=== PATIENT | female | born 1960 | race Caucasian/White ===

== ENCOUNTER 2018-04-11 17:58 | Inpatient (IN) | payer OTHER ==
[2018-04-11] MEDS: ATENOLOL 50 MG TAB PO (18:53)
[2018-04-11] MEDS ORDERED: FUROSEMIDE 20 MG TAB PO (19:00)
[2018-04-11 19:15] LABS: MEAN CORPUSCULAR HEMOGLOBIN 26.4 pg (27.0-33.0); MEAN CORPUSCULAR HGB CONC 32.5 g/dl (32.0-36.5); MEAN CORPUSCULAR VOLUME 81.3 fl (80.0-96.0); PLATELET COUNT, AUTOMATED 372 10^3/uL (150-450); RED BLOOD COUNT 4.92 10^6/uL (4.00-5.40); RED CELL DISTRIBUTION WIDTH 17.4 % (11.5-14.5); WHITE BLOOD COUNT 7.3 10^3/uL (4.0-10.0)
[2018-04-11 19:58] LABS: ACETAMINOPHEN LEVEL 4.7 UG/ML (10.0-30.0); ALBUMIN 3.6 GM/DL (3.2-5.2); ALBUMIN/GLOBULIN RATIO 0.92 (1.00-1.93); ALKALINE PHOSPHATASE 146 U/L (45-117); ALT/SGPT 40 U/L (12-78); ANION GAP 14 MEQ/L (8-16); AST/SGOT 19 U/L (7-37); BILIRUBIN,DIRECT 0.1 MG/DL (0.0-0.2); BILIRUBIN,TOTAL 0.4 MG/DL (0.2-1.0); BLOOD UREA NITROGEN 15 MG/DL (7-18); CALCIUM LEVEL 10.9 MG/DL (8.5-10.1); CARBON DIOXIDE LEVEL 22 MEQ/L (21-32); CHLORIDE LEVEL 101 MEQ/L (98-107); CREATININE FOR GFR 1.32 MG/DL (0.55-1.30); GLOMERULAR FILTRATION RATE 44.2 (>51); GLUCOSE, FASTING 337 MG/DL (70-100); POTASSIUM SERUM 4.1 MEQ/L (3.5-5.1); SODIUM LEVEL 137 MEQ/L (136-145); TOTAL PROTEIN 7.5 GM/DL (6.4-8.2)
[2018-04-11 20:03] LABS: AMPHETAMINES LEVEL URINE NEGATIVE (NEGATIVE); BARBITURATES URINE NEGATIVE (NEGATIVE); BENZODIAZEPINES URINE NEGATIVE (NEGATIVE); CANNABINOIDS URINE NEGATIVE (NEGATIVE); COCAINE METABOLITE URINE NEGATIVE (NEGATIVE); METHADONE URINE NEGATIVE (NEGATIVE); OPIATES URINE NEGATIVE (NEGATIVE); PHENCYCLIDINE URINE NEGATIVE (NEGATIVE)
[2018-04-11 20:14] LABS: ETHYL ALCOHOL (ETHANOL) < 0.003 % (0.000-0.010)
[2018-04-11] MEDS: HumaLOG INSULIN (NovoLOG) PER UNIT SC (21:35)
[2018-04-11] MEDS: metFORMIN (GLUCOPHAGE) 500 MG TAB PO (21:35)
[2018-04-11] MEDS: LEVOTHYROXINE 112MCG TABLET (0.112MG) PO (21:35)
[2018-04-11 22:55] LABS: BEDSIDE GLUCOSE 210 MG/DL (70-105)
[2018-04-11] MEDS ORDERED: traZODone 50 MG TAB PO (23:15)
[2018-04-11] MEDS ORDERED: MAALOX 30 ML SUSP *UDC PO (23:15)
[2018-04-11] MEDS ORDERED: MOM 30ML SUSPENSION UDC PO (23:15)
[2018-04-11] MEDS ORDERED: LORazepam 0.5 MG TAB PO (23:15)
[2018-04-12] MEDS: LEVOTHYROXINE 112MCG TABLET (0.112MG) PO (06:08)
[2018-04-12] MEDS ORDERED: metFORMIN (GLUCOPHAGE) 500 MG TAB PO (08:00)
[2018-04-12] MEDS ORDERED: LEVEMIR (INSULIN DETEMIR) 1 UNITS/0.01ML SC (09:00)
[2018-04-12] MEDS: ATORVASTATIN 20 MG TAB PO ×2 (09:00→20:47)
[2018-04-12] MEDS: ATENOLOL 50 MG TAB PO (09:42)
[2018-04-12] MEDS: ENALAPRIL MALEATE 5 MG TAB PO (09:42)
[2018-04-12] MEDS: ASPIRIN 81 MG CHEW TABLET PO (09:43)
[2018-04-12] MEDS: OMEPRAZOLE 20 MG CAP PO (09:43)
[2018-04-12] MEDS: FUROSEMIDE 20 MG TAB PO (09:44)
[2018-04-12] MEDS ORDERED: DEXTROSE 50% 50 ML SYRINGE IV (09:45)
[2018-04-12] MEDS ORDERED: GLUCOSE 4 GM CHEW TABLET PO (09:45)
[2018-04-12] MEDS ORDERED: GLUCAGON FOR INJ 1 MG VIAL (J1610) SC (09:45)
[2018-04-12] MEDS ORDERED: CEPACOL LOZENGE PO (10:45)
[2018-04-12 11:12] LABS: ESTIMATED AVERAGE GLUCOSE 229 MG/DL (60-110); HEMOGLOBIN A1c 9.6 %
[2018-04-12 11:37] LABS: ALBUMIN 3.5 GM/DL (3.2-5.2); ALBUMIN/GLOBULIN RATIO 0.97 (1.00-1.93); ALKALINE PHOSPHATASE 133 U/L (45-117); ALT/SGPT 35 U/L (12-78); ANION GAP 12 MEQ/L (8-16); AST/SGOT 19 U/L (7-37); BILIRUBIN,TOTAL 0.5 MG/DL (0.2-1.0); BLOOD UREA NITROGEN 12 MG/DL (7-18); CALCIUM LEVEL 10.1 MG/DL (8.5-10.1); CARBON DIOXIDE LEVEL 26 MEQ/L (21-32); CHLORIDE LEVEL 99 MEQ/L (98-107); CREATININE FOR GFR 1.41 MG/DL (0.55-1.30); GLOMERULAR FILTRATION RATE 40.9 (>51); GLUCOSE, FASTING 300 MG/DL (70-100); POTASSIUM SERUM 4.2 MEQ/L (3.5-5.1); SODIUM LEVEL 137 MEQ/L (136-145); TOTAL PROTEIN 7.1 GM/DL (6.4-8.2)
[2018-04-12] MEDS: HumaLOG INSULIN (NovoLOG) PER UNIT SC ×4 (12:00→21:00)
[2018-04-12 12:26] LABS: BEDSIDE GLUCOSE 291 MG/DL (70-105)
[2018-04-12 12:44] LABS: MAGNESIUM LEVEL 1.4 MG/DL (1.8-2.4)
[2018-04-12 12:54] LABS: HEMATOCRIT 41.2 % (36.0-47.0); HEMOGLOBIN 13.2 g/dl (12.0-15.5); MEAN CORPUSCULAR HEMOGLOBIN 26.3 pg (27.0-33.0); MEAN CORPUSCULAR VOLUME 82.1 fl (80.0-96.0); PLATELET COUNT, AUTOMATED 407 10^3/uL (150-450); RED BLOOD COUNT 5.02 10^6/uL (4.00-5.40); RED CELL DISTRIBUTION WIDTH 17.2 % (11.5-14.5); WHITE BLOOD COUNT 7.9 10^3/uL (4.0-10.0)
[2018-04-12] MEDS: MAGNESIUM OXIDE 400 MG TAB (MAG-OX) PO (16:27)
[2018-04-12 17:16] LABS: BEDSIDE GLUCOSE 197 MG/DL (70-105)
[2018-04-12] MEDS: metFORMIN (GLUCOPHAGE) 500 MG TAB PO (17:18)
[2018-04-12] MEDS ORDERED: HumaLOG INSULIN (NovoLOG) PER UNIT SC (17:30)
[2018-04-12 20:44] LABS: BEDSIDE GLUCOSE 180 MG/DL (70-105)
[2018-04-12] MEDS: MIRTAZAPINE 15 MG TAB PO (20:47)
[2018-04-12] MEDS: LEVEMIR (INSULIN DETEMIR) 1 UNITS/0.01ML SC (20:50)
[2018-04-13 06:02] LABS: BEDSIDE GLUCOSE 293 MG/DL (70-105)
[2018-04-13] MEDS: LEVOTHYROXINE 112MCG TABLET (0.112MG) PO (06:07)
[2018-04-13] MEDS: HumaLOG INSULIN (NovoLOG) PER UNIT SC ×4 (06:38→21:22)
[2018-04-13 08:34] LABS: ANION GAP 14 MEQ/L (8-16); BLOOD UREA NITROGEN 19 MG/DL (7-18); CALCIUM LEVEL 9.3 MG/DL (8.5-10.1); CARBON DIOXIDE LEVEL 15 MEQ/L (21-32); CHLORIDE LEVEL 104 MEQ/L (98-107); CREATININE FOR GFR 1.19 MG/DL (0.55-1.30); FREE THYROXINE INDEX 1.5 % (1.3-4.8); GLOMERULAR FILTRATION RATE 49.8 (>51); GLUCOSE, FASTING 308 MG/DL (70-100); MAGNESIUM LEVEL 1.3 MG/DL (1.8-2.4); SODIUM LEVEL 133 MEQ/L (136-145); T UPTAKE 31 % (30-39); THYROXINE (T4) 4.9 UG/DL (4.5-12.0)
[2018-04-13] MEDS: MAGNESIUM OXIDE 400 MG TAB (MAG-OX) PO (08:45)
[2018-04-13] MEDS: OMEPRAZOLE 20 MG CAP PO (08:45)
[2018-04-13] MEDS: ASPIRIN 81 MG CHEW TABLET PO (08:48)
[2018-04-13] MEDS: metFORMIN (GLUCOPHAGE) 500 MG TAB PO ×2 (08:48→17:41)
[2018-04-13] MEDS: FUROSEMIDE 20 MG TAB PO (08:49)
[2018-04-13] MEDS: ATENOLOL 50 MG TAB PO (08:51)
[2018-04-13] MEDS: LEVEMIR (INSULIN DETEMIR) 1 UNITS/0.01ML SC ×2 (08:55→21:21)
[2018-04-13 12:12] LABS: BEDSIDE GLUCOSE 278 MG/DL (70-105)
[2018-04-13 17:14] LABS: BEDSIDE GLUCOSE 288 MG/DL (70-105)
[2018-04-13] MEDS: ATORVASTATIN 20 MG TAB PO (21:15)
[2018-04-13] MEDS: MIRTAZAPINE 7.5MG PER 1/2 TABLET PO (21:15)
[2018-04-13 21:17] LABS: BEDSIDE GLUCOSE 273 MG/DL (70-105)
[2018-04-14 06:27] LABS: BEDSIDE GLUCOSE 218 MG/DL (70-105)
[2018-04-14] MEDS: LEVOTHYROXINE 112MCG TABLET (0.112MG) PO (06:29)
[2018-04-14] MEDS: HumaLOG INSULIN (NovoLOG) PER UNIT SC ×4 (07:09→21:01)
[2018-04-14 08:30] LABS: ALBUMIN 3.2 GM/DL (3.2-5.2); ALBUMIN/GLOBULIN RATIO 0.86 (1.00-1.93); ALKALINE PHOSPHATASE 123 U/L (45-117); ALT/SGPT 30 U/L (12-78); ANION GAP 8 MEQ/L (8-16); AST/SGOT 21 U/L (7-37); BILIRUBIN,TOTAL 0.4 MG/DL (0.2-1.0); BLOOD UREA NITROGEN 19 MG/DL (7-18); CALCIUM LEVEL 9.2 MG/DL (8.5-10.1); CARBON DIOXIDE LEVEL 29 MEQ/L (21-32); CHLORIDE LEVEL 104 MEQ/L (98-107); CREATININE FOR GFR 1.01 MG/DL (0.55-1.30); GLOMERULAR FILTRATION RATE > 60.0 (>51); GLUCOSE, FASTING 198 MG/DL (70-100); MAGNESIUM LEVEL 1.4 MG/DL (1.8-2.4); POTASSIUM SERUM 4.1 MEQ/L (3.5-5.1); SODIUM LEVEL 141 MEQ/L (136-145); TOTAL PROTEIN 6.9 GM/DL (6.4-8.2)
[2018-04-14] MEDS: ASPIRIN 81 MG CHEW TABLET PO (08:43)
[2018-04-14] MEDS: FUROSEMIDE 20 MG TAB PO (08:43)
[2018-04-14] MEDS: OMEPRAZOLE 20 MG CAP PO (08:43)
[2018-04-14] MEDS: MAGNESIUM OXIDE 400 MG TAB (MAG-OX) PO ×2 (08:43→21:03)
[2018-04-14] MEDS: metFORMIN (GLUCOPHAGE) 500 MG TAB PO ×2 (08:44→17:21)
[2018-04-14] MEDS: ATENOLOL 50 MG TAB PO (08:44)
[2018-04-14] MEDS: LEVEMIR (INSULIN DETEMIR) 1 UNITS/0.01ML SC ×2 (08:47→21:02)
[2018-04-14 11:58] LABS: BEDSIDE GLUCOSE 254 MG/DL (70-105)
[2018-04-14 17:20] LABS: BEDSIDE GLUCOSE 236 MG/DL (70-105)
[2018-04-14] MEDS: ATORVASTATIN 20 MG TAB PO (21:02)
[2018-04-14] MEDS: MIRTAZAPINE 7.5MG PER 1/2 TABLET PO (21:02)
[2018-04-14 21:07] LABS: BEDSIDE GLUCOSE 261 MG/DL (70-105)
[2018-04-15] MEDS: LEVOTHYROXINE 112MCG TABLET (0.112MG) PO (06:34)
[2018-04-15] MEDS: HumaLOG INSULIN (NovoLOG) PER UNIT SC ×2 (06:53→11:53)
[2018-04-15 08:51] LABS: ALBUMIN 3.1 GM/DL (3.2-5.2); ALBUMIN/GLOBULIN RATIO 0.89 (1.00-1.93); ALKALINE PHOSPHATASE 126 U/L (45-117); ALT/SGPT 32 U/L (12-78); ANION GAP 8 MEQ/L (8-16); AST/SGOT 25 U/L (7-37); BILIRUBIN,TOTAL 0.4 MG/DL (0.2-1.0); BLOOD UREA NITROGEN 18 MG/DL (7-18); CALCIUM LEVEL 8.9 MG/DL (8.5-10.1); CARBON DIOXIDE LEVEL 30 MEQ/L (21-32); CHLORIDE LEVEL 104 MEQ/L (98-107); CREATININE FOR GFR 0.92 MG/DL (0.55-1.30); GLOMERULAR FILTRATION RATE > 60.0 (>51); GLUCOSE, FASTING 177 MG/DL (70-100); MAGNESIUM LEVEL 1.6 MG/DL (1.8-2.4); SODIUM LEVEL 142 MEQ/L (136-145); TOTAL PROTEIN 6.6 GM/DL (6.4-8.2)
[2018-04-15] MEDS: OMEPRAZOLE 20 MG CAP PO (09:24)
[2018-04-15] MEDS: MAGNESIUM OXIDE 400 MG TAB (MAG-OX) PO (09:24)
[2018-04-15] MEDS: LEVEMIR (INSULIN DETEMIR) 1 UNITS/0.01ML SC (09:24)
[2018-04-15] MEDS: metFORMIN (GLUCOPHAGE) 500 MG TAB PO (09:25)
[2018-04-15] MEDS: ATENOLOL 50 MG TAB PO (09:25)
[2018-04-15] MEDS: FUROSEMIDE 20 MG TAB PO (09:25)
[2018-04-15] MEDS: ASPIRIN 81 MG CHEW TABLET PO (09:25)
[2018-04-15 14:07] LABS: BEDSIDE GLUCOSE 173 MG/DL (70-105)
== END 2018-04-15 11:30 | disposition home or self-care (01) | DRG 754 ==
LOC: M PSY 04-12 00:15 → M ED 17:58 → M ED INP 23:06
DX: F43.21 Adjustment disorder with depressed mood (principal); I13.0 Hypertensive heart and chronic kidney disease with heart failure and stage 1 through stage 4 chronic kidney disease, or unspecified chronic kidney disease; E11.22 Type 2 diabetes mellitus with diabetic chronic kidney disease; I50.9 Heart failure, unspecified; Z91.14 Patient's other noncompliance with medication regimen; N18.3 Chronic kidney disease, stage 3 (moderate); I25.10 Atherosclerotic heart disease of native coronary artery without angina pectoris; Z95.0 Presence of cardiac pacemaker; Z95.5 Presence of coronary angioplasty implant and graft; I25.2 Old myocardial infarction; Z79.82 Long term (current) use of aspirin; Z79.4 Long term (current) use of insulin; Z79.899 Other long term (current) drug therapy; Z88.0 Allergy status to penicillin; Z88.5 Allergy status to narcotic agent; Z88.8 Allergy status to other drugs, medicaments and biological substances; Z88.1 Allergy status to other antibiotic agents; E66.9 Obesity, unspecified; Z68.30 Body mass index [BMI] 30.0-30.9, adult; E78.5 Hyperlipidemia, unspecified; E03.9 Hypothyroidism, unspecified

== ENCOUNTER 2018-04-30 11:15 | Emergency (ER) | payer OTHER ==
[2018-04-30 12:18] LABS: BASO # 0.1 10^3/uL (0.0-0.2); BASO % 1.2 % (0.0-1.0); EOS # 0.1 10^3/uL (0.0-0.50); EOS % 1.1 % (0.0-3.0); HEMATOCRIT 43.7 % (36.0-47.0); HEMOGLOBIN 13.5 g/dl (12.0-15.5); IMMATURE GRANULOCYTE % 1.1 % (0-3.0); LYMPH # 1.9 10^3/uL (1.5-4.5); LYMPH % 18.5 % (24.0-44.0); MEAN CORPUSCULAR HEMOGLOBIN 26.7 pg (27.0-33.0); MEAN CORPUSCULAR HGB CONC 30.9 g/dl (32.0-36.5); MEAN CORPUSCULAR VOLUME 86.5 fl (80.0-96.0); MONO # 0.5 10^3/uL (0.0-0.8); MONO % 4.4 % (0.0-5.0); NEUTROPHILS # 7.5 10^3/uL (1.8-7.7); NEUTROPHILS % 73.7 % (36.0-66.0); PLATELET COUNT, AUTOMATED 455 10^3/uL (150-450); RED BLOOD COUNT 5.05 10^6/uL (4.00-5.40); RED CELL DISTRIBUTION WIDTH 17.1 % (11.5-14.5); WHITE BLOOD COUNT 10.2 10^3/uL (4.0-10.0)
[2018-04-30 12:27] LABS: INR 1.05; PROTHROMBIN TIME 13.8 SECONDS (12.1-14.4)
[2018-04-30 12:28] LABS: PARTIAL THROMBOPLASTIN TIME 25.9 SECONDS (25.4-37.6)
[2018-04-30 12:51] LABS: ANION GAP 10 MEQ/L (8-16); BLOOD UREA NITROGEN 13 MG/DL (7-18); CALCIUM LEVEL 8.9 MG/DL (8.5-10.1); CARBON DIOXIDE LEVEL 26 MEQ/L (21-32); CHLORIDE LEVEL 105 MEQ/L (98-107); CK-MB VALUE MASS < 1.0 NG/ML (<3.6); CPK CREATINE PHOSPHOKINASE 39 U/L (26-192); GLOMERULAR FILTRATION RATE 44.9 (>51); MB/CK RELATIVE INDEX 2.56 (< OR =4); POTASSIUM SERUM 4.1 MEQ/L (3.5-5.1); SODIUM LEVEL 141 MEQ/L (136-145); TROPONIN I < 0.02 NG/ML (< 0.10)
[2018-04-30 12:53] LABS: GLUCOSE, FASTING 412 MG/DL (70-100)
[2018-04-30 15:34] LABS: CK-MB VALUE MASS < 1.0 NG/ML (<3.6); CPK CREATINE PHOSPHOKINASE 30 U/L (26-192); MB/CK RELATIVE INDEX 3.33 (< OR =4); TROPONIN I < 0.02 NG/ML (< 0.10)
== END 2018-04-30 16:41 | disposition home or self-care (01) ==
LOC: M ED 11:15
DX: R53.1 Weakness (principal); E11.9 Type 2 diabetes mellitus without complications; I25.10 Atherosclerotic heart disease of native coronary artery without angina pectoris; I11.9 Hypertensive heart disease without heart failure; I25.2 Old myocardial infarction; Z88.6 Allergy status to analgesic agent; Z88.1 Allergy status to other antibiotic agents; Z88.5 Allergy status to narcotic agent; Z88.8 Allergy status to other drugs, medicaments and biological substances; Z79.899 Other long term (current) drug therapy; Z79.82 Long term (current) use of aspirin; Z79.4 Long term (current) use of insulin
CPT/HCPCS: 71045

== ENCOUNTER → 2018-05-10 | Outpatient (REF) | payer OTHER ==
[2018-05-10 13:49] LABS: MAU/CREAT RATIO 49.4 MCG/MG (0.0-30.0)
[2018-05-10 14:19] LABS: ESTIMATED AVERAGE GLUCOSE 237 MG/DL (60-110); HEMOGLOBIN A1c 9.9 %
[2018-05-10 14:35] LABS: ALBUMIN/GLOBULIN RATIO 0.95 (1.00-1.93); ALKALINE PHOSPHATASE 137 U/L (45-117); ALT/SGPT 18 U/L (12-78); ANION GAP 11 MEQ/L (8-16); AST/SGOT 14 U/L (7-37); BILIRUBIN,TOTAL 0.5 MG/DL (0.2-1.0); BLOOD UREA NITROGEN 15 MG/DL (7-18); CALCIUM LEVEL 10.5 MG/DL (8.5-10.1); CARBON DIOXIDE LEVEL 26 MEQ/L (21-32); CHLORIDE LEVEL 104 MEQ/L (98-107); CHOLESTEROL LEVEL 311 MG/DL (<200); CHOLESTEROL RISK RATIO 7.585 (<5); CREATININE FOR GFR 1.23 MG/DL (0.55-1.30); GLOMERULAR FILTRATION RATE 47.9 (>51); GLUCOSE, FASTING 154 MG/DL (70-100); HDL CHOLESTEROL 41 MG/DL (>40); LDL CHOLESTEROL 199.6 MG/DL (<100); MAGNESIUM LEVEL 1.8 MG/DL (1.8-2.4); NON-HDL-C 270 MG/DL; POTASSIUM SERUM 5.1 MEQ/L (3.5-5.1); SODIUM LEVEL 141 MEQ/L (136-145); TOTAL PROTEIN 8.2 GM/DL (6.4-8.2); TRIGLYCERIDES LEVEL 352 MG/DL (<150)
== END ==
LOC: M LAB REF 12:47
DX: E11.9 Type 2 diabetes mellitus without complications (principal)
CPT/HCPCS: 83735